=== PATIENT | female | born 1935 | race Caucasian/White ===

== ENCOUNTER 2024-06-11 10:38 | Emergency (ER) | payer MEDICARE, OTHER ==
[2024-06-11 10:51] VITALS: TEMP 98.8
--- NOTE | 2024-06-11 10:59 | ERPHSYRPT ---
- History of Present Illness Time Seen by Provider: 06/11/24 10:59 Source: patient, family Exam Limitations: no limitations Physician History: This is an 88-year-old white female patient of Dr. Tapia who arrives by private vehicle escorted by her significant other with a complaint of shortness of breath for several weeks. She does not see Dr. Tapia until the month of July 2024 and was concerned because her symptoms have worsened in the last 2 days including a productive cough of clear sputum but no fever. Patient denies chest pain. Patient denies abdominal pain. There have been no changes in her medication. Her room air oxygen saturation level is 99% and her vital signs are stable. Timing/Duration: week(s) (Symptoms present for several weeks), worse (Symptoms worse in the last 2 days) Severity of Dyspnea-Max: moderate (Primarily with exertion) Severity of Dyspnea-Current: mild Possible Cause: no prior episodes Modifying Factors: Improves With: activity (Worsens), coughing Associated Symptoms: cough, productive cough (Sputum), No chest pain/discomfort, No fever, No calf pain, No heaviness Allergies/Adverse Reactions: No Known Drug Allergies Allergy (Unverified 06/11/24 10:40) Travel Risk - International Travel Have you traveled outside of the country in past 3 weeks: No - Emerging Infectious Disease Are you exhibiting symptoms associated with any current EIDs: Yes Symptoms: Cough: New Onset, Shortness of Breath - Review of Systems Constitutional: No Symptoms Eyes: No Symptoms Ears, Nose, & Throat: No Symptoms Respiratory: Cough, Dyspnea on Exertion (BISHOP) Cardiac: No Symptoms Abdominal/Gastrointestinal: No Symptoms Genitourinary Symptoms: No Symptoms Musculoskeletal: No Symptoms Skin: No Symptoms Neurological: No Symptoms Psychological: No Symptoms Endocrine: No Symptoms Hematologic/Lymphatic: No Symptoms Immunological/Allergic: No Symptoms All Other Systems: Reviewed and Negative - Past Medical History Pertinent Past Medical History: Yes Cardiac History: Arrhythmia, High Cholesterol Endocrine Medical History: Diabetes Type II Other Medical History: kidney stones - Past Surgical History Past Surgical History: Yes Gastrointestinal: Cholecystectomy Genitourinary: Kidney Surgery Other Surgical History: right kidney removed. kidney stone removal - Nursing Vital Signs Nursing Vital Signs: Initial Vital Signs Pulse Rate 71 06/11/24 10:33 Respiratory Rate 20 06/11/24 10:33 Blood Pressure 167/65 06/11/24 10:33 O2 Sat by Pulse Oximetry 96 06/11/24 10:33 Pain Scale Pain Intensity 0 - Physical Exam General Appearance: no apparent distress, alert, anxiety Eye Exam: PERRL/EOMI, eyes nml inspection Ears, Nose, Throat Exam: hearing grossly normal Neck Exam: normal inspection, non-tender, supple, full range of motion Respiratory Exam: normal breath sounds, lungs clear, airway intact, No chest tenderness, No respiratory distress Cardiovascular/Chest Exam: normal heart sounds, regular rate/rhythm Abdominal/Gastrointestinal Exam: soft, normal bowel sounds, No tenderness Rectal Exam: not done Extremity Exam: non-tender, normal range of motion, normal inspection, no calf tenderness, no pedal edema, pelvis stable Neurologic Exam: alert, oriented x 3, cooperative, finisher wallboard and plasterboard II-XII nml as tested, normal mood/affect, nml cerebellar function, nml station & gait, sensation nml Skin Exam: normal color, warm, dry Lymphatic Exam: No adenopathy SpO2 Interpretation: normal SpO2: 97 O2 Delivery: Room Air - Course Nursing assessment & vital signs reviewed: Yes EKG Interpreted by Me: RATE (75), Sinus Rhythm, NORMAL AXIS, NORMAL INTERVALS, Right Bundle Branch Block, Other (No acute ischemic changes on today's twelve-lead EKG.) Ordered Tests: Active Orders 24 hr Category Date Time Status EKG-ER Only STAT Care 06/11/24 11:41 Active IV Insertion STAT Care 06/11/24 11:41 Active Pulse Oximetry (ED) STAT Care 06/11/24 11:41 Active CHEST 1 VIEW (PORTABLE) Stat Exams 06/11/24 11:42 Completed BLOOD CULTURE Stat Lab 06/11/24 12:04 Received CBC W DIFF Stat Lab 06/11/24 11:41 Results CMP Stat Lab 06/11/24 12:04 Completed D-DIMER QUANTITATIVE Stat Lab 06/11/24 12:04 Completed Lactic Acid Stat Lab 06/11/24 12:04 Completed Lactic Acid Stat Lab 06/11/24 14:32 Completed MAGNESIUM Stat Lab 06/11/24 12:04 Completed MONO SCREEN Stat Lab 06/11/24 12:04 Completed Manual Differential NC Stat Lab 06/11/24 11:41 Results NT PRO BNPII Stat Lab 06/11/24 12:04 Completed Occult Blood-Fecal Screen (Diagnostic) [OB-FECAL SCREEN Lab 06/11/24 Ordered ] Stat Pathologist Review Stat Lab 06/11/24 11:41 Results TROPONIN Q4H Lab 06/11/24 12:04 Completed TROPONIN Q4H Lab 06/11/24 15:48 Completed TROPONIN Q4H Lab 06/11/24 19:45 Ordered UA W/RFX UR CULTURE Stat Lab 06/11/24 14:47 Completed Medication Summary Discontinued Medications Generic Name Dose Route Start Last Admin Trade Name Joe PRN Reason Stop Dose Admin Sodium Chloride 500 mls @ 500 mls/hr 06/11/24 12:44 06/11/24 13:47 Sodium Chloride 0.9% 500 Ml IV 06/11/24 13:43 Infused .Q1H ONE Infusion Sodium Chloride Confirm 06/11/24 12:46 Sodium Chloride 0.9% 500 Ml Administered 06/11/24 12:47 Dose 500 mls @ ud IV .STK-MED ONE Lab/Rad Data: Laboratory Result Diagrams 06/11/24 11:41 06/11/24 12:04 Laboratory Results 06/11/24 06/11/24 06/11/24 Range/Units 15:48 14:47 14:32 WBC (3.98-10.04) x10^3/uL RBC (3.93-5.22) x10^6/uL Hgb (11.2-15.7) g/dL Hct (34.1-44.9) % MCV (79.4-94.8) fL MCH (25.6-32.2) pg MCHC (32.2-35.5) g/dL RDW (11.7-14.4) % Plt Count (182-369) x10^3/uL MPV (9.4-12.3) fL Gran % (34.0-71.1) % Immature Gran % (Auto) (0.001-0.429) % Nucleat RBC Rel Count (0.00-0.2) % Eos # (Auto) (0.04-0.36) x10^3/uL Immature Gran # (Auto) (0.001-0.031) x10^3u/L Absolute Lymphs (auto) (1.18-3.74) x10^3/uL Absolute Monos (auto) (0.24-0.86) x10^3/uL Absolute Nucleated RBC (0.00-0.012) x10^3u/L Lymphocytes % (19.3-51.7) % Monocytes % (4.7-12.5) % Eosinophils % (0.7-5.8) % Basophils % (0.1-1.2) % Absolute Granulocytes (1.56-6.13) x10^3/uL Segmented Neutrophils (34.0-71.1) % Lymphocytes (Manual) (19.3-51.7) % Monocytes (Manual) (4.7-12.5) % Eosinophils (Manual) (0.7-5.8) % Basophils # (0.01-0.08) x10^3/uL Hypochromia Platelet Estimate (NORMAL) RBC Morphology Anisocytosis Smear Path Review D-Dimer (0.0-0.50) mg/L Sodium (135-145) mmol/L Potassium (3.5-5.1) mmol/L Chloride (98-107) mmol/L Carbon Dioxide (22-30) mmol/L Anion Gap (5-15) MEQ/L BUN (7-17) mg/dL Creatinine (0.52-1.04) mg/dL Estimated GFR ML/MIN Glucose (74-106) mg/dL Lactic Acid 2.0 (0.4-2.0) Calcium (8.4-10.2) mg/dL Magnesium (1.6-2.3) mg/dL Total Bilirubin (0.2-1.3) mg/dL AST (14-36) U/L ALT (0-35) U/L Alkaline Phosphatase (38-126) U/L Troponin I < 0.012 (0.000-0.033) ng/mL NT-Pro-B Natriuret Pep (<300) pg/mL Serum Total Protein (6.3-8.2) g/dL Albumin (3.5-5.0) g/dL Urine Color Yellow (Yellow) Urine Appearance Clear (Clear) Urine pH 5.5 (4.6-8.0) Ur Specific [place] 1.010 (1.005-1.030) Urine Protein Trace A (Negative) Urine Glucose (UA) Negative (Negative) mg/dL Urine Ketones Negative (Negative) Urine Blood Negative (Negative) Urine Nitrite Negative (Negative) Urine Bilirubin Negative (Negative) Urine Urobilinogen 0.2 (0.2) mg/dL Ur Leukocyte Esterase Negative (Negative) U Hyaline Cast (Auto) NONE SEEN (0-2) /LPF Urine Microscopic RBC 0-2 (0-5) /HPF Urine Microscopic WBC 0-2 (0-5) /HPF Ur Epithelial Cells None Seen (None Seen) /HPF Urine Bacteria None Seen (None Seen) /HPF Urine Culture Reflexed NO (NO) Monoscreen (NEGATIVE) Influenza Type A Ag (NEGATIVE) Influenza Type B Ag (NEGATIVE) RSV (PCR) (NEGATIVE) SARS-CoV-2 (PCR) (NEGATIVE) 06/11/24 06/11/24 06/11/24 Range/Units 12:04 12:04 12:04 WBC (3.98-10.04) x10^3/uL RBC (3.93-5.22) x10^6/uL Hgb (11.2-15.7) g/dL Hct (34.1-44.9) % MCV (79.4-94.8) fL MCH (25.6-32.2) pg MCHC (32.2-35.5) g/dL RDW (11.7-14.4) % Plt Count (182-369) x10^3/uL MPV (9.4-12.3) fL Gran % (34.0-71.1) % Immature Gran % (Auto) (0.001-0.429) % Nucleat RBC Rel Count (0.00-0.2) % Eos # (Auto) (0.04-0.36) x10^3/uL Immature Gran # (Auto) (0.001-0.031) x10^3u/L Absolute Lymphs (auto) (1.18-3.74) x10^3/uL Absolute Monos (auto) (0.24-0.86) x10^3/uL Absolute Nucleated RBC (0.00-0.012) x10^3u/L Lymphocytes % (19.3-51.7) % Monocytes % (4.7-12.5) % Eosinophils % (0.7-5.8) % Basophils % (0.1-1.2) % Absolute Granulocytes (1.56-6.13) x10^3/uL Segmented Neutrophils (34.0-71.1) % Lymphocytes (Manual) (19.3-51.7) % Monocytes (Manual) (4.7-12.5) % Eosinophils (Manual) (0.7-5.8) % Basophils # (0.01-0.08) x10^3/uL Hypochromia Platelet Estimate (NORMAL) RBC Morphology Anisocytosis Smear Path Review D-Dimer (0.0-0.50) mg/L Sodium (135-145) mmol/L Potassium (3.5-5.1) mmol/L Chloride (98-107) mmol/L Carbon Dioxide (22-30) mmol/L Anion Gap (5-15) MEQ/L BUN (7-17) mg/dL Creatinine (0.52-1.04) mg/dL Estimated GFR ML/MIN Glucose (74-106) mg/dL Lactic Acid (0.4-2.0) Calcium (8.4-10.2) mg/dL Magnesium (1.6-2.3) mg/dL Total Bilirubin (0.2-1.3) mg/dL AST (14-36) U/L ALT (0-35) U/L Alkaline Phosphatase (38-126) U/L Troponin I < 0.012 (0.000-0.033) ng/mL NT-Pro-B Natriuret Pep (<300) pg/mL Serum Total Protein (6.3-8.2) g/dL Albumin (3.5-5.0) g/dL Urine Color (Yellow) Urine Appearance (Clear) Urine pH (4.6-8.0) Ur Specific [place] (1.005-1.030) Urine Protein (Negative) Urine Glucose (UA) (Negative) mg/dL Urine Ketones (Negative) Urine Blood (Negative) Urine Nitrite (Negative) Urine Bilirubin (Negative) Urine Urobilinogen (0.2) mg/dL Ur Leukocyte Esterase (Negative) U Hyaline Cast (Auto) (0-2) /LPF Urine Microscopic RBC (0-5) /HPF Urine Microscopic WBC (0-5) /HPF Ur Epithelial Cells (None Seen) /HPF Urine Bacteria (None Seen) /HPF Urine Culture Reflexed (NO) Monoscreen NEGATIVE (NEGATIVE) Influenza Type A Ag NEGATIVE (NEGATIVE) Influenza Type B Ag NEGATIVE (NEGATIVE) RSV (PCR) NEGATIVE (NEGATIVE) SARS-CoV-2 (PCR) NEGATIVE (NEGATIVE) 06/11/24 06/11/24 06/11/24 Range/Units 12:04 12:04 12:04 WBC (3.98-10.04) x10^3/uL RBC (3.93-5.22) x10^6/uL Hgb (11.2-15.7) g/dL Hct (34.1-44.9) % MCV (79.4-94.8) fL MCH (25.6-32.2) pg MCHC (32.2-35.5) g/dL RDW (11.7-14.4) % Plt Count (182-369) x10^3/uL MPV (9.4-12.3) fL Gran % (34.0-71.1) % Immature Gran % (Auto) (0.001-0.429) % Nucleat RBC Rel Count (0.00-0.2) % Eos # (Auto) (0.04-0.36) x10^3/uL Immature Gran # (Auto) (0.001-0.031) x10^3u/L Absolute Lymphs (auto) (1.18-3.74) x10^3/uL Absolute Monos (auto) (0.24-0.86) x10^3/uL Absolute Nucleated RBC (0.00-0.012) x10^3u/L Lymphocytes % (19.3-51.7) % Monocytes % (4.7-12.5) % Eosinophils % (0.7-5.8) % Basophils % (0.1-1.2) % Absolute Granulocytes (1.56-6.13) x10^3/uL Segmented Neutrophils (34.0-71.1) % Lymphocytes (Manual) (19.3-51.7) % Monocytes (Manual) (4.7-12.5) % Eosinophils (Manual) (0.7-5.8) % Basophils # (0.01-0.08) x10^3/uL Hypochromia Platelet Estimate (NORMAL) RBC Morphology Anisocytosis Smear Path Review D-Dimer 0.58 H (0.0-0.50) mg/L Sodium 140 (135-145) mmol/L Potassium 3.4 L (3.5-5.1) mmol/L Chloride 100 (98-107) mmol/L Carbon Dioxide 26 (22-30) mmol/L Anion Gap 17.1 H (5-15) MEQ/L BUN 18 H (7-17) mg/dL Creatinine 1.54 H (0.52-1.04) mg/dL Estimated GFR 32.7 ML/MIN Glucose 201 H (74-106) mg/dL Lactic Acid 3.2 H (0.4-2.0) Calcium 9.8 (8.4-10.2) mg/dL Magnesium 1.6 (1.6-2.3) mg/dL Total Bilirubin 0.40 (0.2-1.3) mg/dL AST 27 (14-36) U/L ALT 34 (0-35) U/L Alkaline Phosphatase 44 (38-126) U/L Troponin I (0.000-0.033) ng/mL NT-Pro-B Natriuret Pep 883 (<300) pg/mL Serum Total Protein 6.8 (6.3-8.2) g/dL Albumin 4.4 (3.5-5.0) g/dL Urine Color (Yellow) Urine Appearance (Clear) Urine pH (4.6-8.0) Ur Specific [place] (1.005-1.030) Urine Protein (Negative) Urine Glucose (UA) (Negative) mg/dL Urine Ketones (Negative) Urine Blood (Negative) Urine Nitrite (Negative) Urine Bilirubin (Negative) Urine Urobilinogen (0.2) mg/dL Ur Leukocyte Esterase (Negative) U Hyaline Cast (Auto) (0-2) /LPF Urine Microscopic RBC (0-5) /HPF Urine Microscopic WBC (0-5) /HPF Ur Epithelial Cells (None Seen) /HPF Urine Bacteria (None Seen) /HPF Urine Culture Reflexed (NO) Monoscreen (NEGATIVE) Influenza Type A Ag (NEGATIVE) Influenza Type B Ag (NEGATIVE) RSV (PCR) (NEGATIVE) SARS-CoV-2 (PCR) (NEGATIVE) 06/11/24 Range/Units 11:41 WBC 18.4 H (3.98-10.04) x10^3/uL RBC 2.30 L (3.93-5.22) x10^6/uL Hgb 8.6 L (11.2-15.7) g/dL Hct 25.1 L (34.1-44.9) % MCV 109.1 H (79.4-94.8) fL MCH 37.4 H (25.6-32.2) pg MCHC 34.3 (32.2-35.5) g/dL RDW 17.4 H (11.7-14.4) % Plt Count 155 L (182-369) x10^3/uL MPV 10.5 (9.4-12.3) fL Gran % 27.8 L (34.0-71.1) % Immature Gran % (Auto) 1.4 H (0.001-0.429) % Nucleat RBC Rel Count 0.0 (0.00-0.2) % Eos # (Auto) 0.24 (0.04-0.36) x10^3/uL Immature Gran # (Auto) 0.26 H (0.001-0.031) x10^3u/L Absolute Lymphs (auto) 3.21 (1.18-3.74) x10^3/uL Absolute Monos (auto) 9.59 H (0.24-0.86) x10^3/uL Absolute Nucleated RBC 0.00 (0.00-0.012) x10^3u/L Lymphocytes % 17.4 L (19.3-51.7) % Monocytes % 52.0 H (4.7-12.5) % Eosinophils % 1.3 (0.7-5.8) % Basophils % 0.1 (0.1-1.2) % Absolute Granulocytes 5.13 (1.56-6.13) x10^3/uL Segmented Neutrophils 36 (34.0-71.1) % Lymphocytes (Manual) 22 (19.3-51.7) % Monocytes (Manual) 40 H (4.7-12.5) % Eosinophils (Manual) 2 (0.7-5.8) % Basophils # 0.01 (0.01-0.08) x10^3/uL Hypochromia 3+ Platelet Estimate DECREASED (NORMAL) RBC Morphology ABNORMAL Anisocytosis 1+ Smear Path Review Pending D-Dimer (0.0-0.50) mg/L Sodium (135-145) mmol/L Potassium (3.5-5.1) mmol/L Chloride (98-107) mmol/L Carbon Dioxide (22-30) mmol/L Anion Gap (5-15) MEQ/L BUN (7-17) mg/dL Creatinine (0.52-1.04) mg/dL Estimated GFR ML/MIN Glucose (74-106) mg/dL Lactic Acid (0.4-2.0) Calcium (8.4-10.2) mg/dL Magnesium (1.6-2.3) mg/dL Total Bilirubin (0.2-1.3) mg/dL AST (14-36) U/L ALT (0-35) U/L Alkaline Phosphatase (38-126) U/L Troponin I (0.000-0.033) ng/mL NT-Pro-B Natriuret Pep (<300) pg/mL Serum Total Protein (6.3-8.2) g/dL Albumin (3.5-5.0) g/dL Urine Color (Yellow) Urine Appearance (Clear) Urine pH (4.6-8.0) Ur Specific [place] (1.005-1.030) Urine Protein (Negative) Urine Glucose (UA) (Negative) mg/dL Urine Ketones (Negative) Urine Blood (Negative) Urine Nitrite (Negative) Urine Bilirubin (Negative) Urine Urobilinogen (0.2) mg/dL Ur Leukocyte Esterase (Negative) U Hyaline Cast (Auto) (0-2) /LPF Urine Microscopic RBC (0-5) /HPF Urine Microscopic WBC (0-5) /HPF Ur Epithelial Cells (None Seen) /HPF Urine Bacteria (None Seen) /HPF Urine Culture Reflexed (NO) Monoscreen (NEGATIVE) Influenza Type A Ag (NEGATIVE) Influenza Type B Ag (NEGATIVE) RSV (PCR) (NEGATIVE) SARS-CoV-2 (PCR) (NEGATIVE) - Progress Progress: improved, re-examined Air Movement: good Progress Note: 06/11/24 11:58 My medical decision making of the assignment of moderate complexity to this patient's medical issue today is based on review of the patient's past medical history, review the patient's medication list, reviewed patient drug allergy list, history present illness and physical findings on examination. The workup in this patient includes placement of an intravenous line, twelve-lead EKG, BNP, troponin level, D-dimer level, CBC, CMP, chest x-ray, viral swabs, monotest. Differential diagnosis includes but is not limited to pneumonia, viral illness, CHF, myocardial infarction, pulmonary embolus 06/11/24 12:21 The chest x-ray was interpreted by the radiologist and I reviewed the impression. The impression states no acute cardiopulmonary process and chronic bony findings. 06/11/24 13:23 I interpreted the patient's laboratory data results. Based on the laboratory data results, the patient does have a leukocytosis as well as anemia. We will add fecal occult blood study as well as urinalysis. The patient only has 1 kidney. Her GFR is low. Her D-dimer is only slightly elevated. We had a long discussion and she decided against the CT scan of the chest with contrast. I do not think this is unreasonable. My suspicion for her having a pulmonary embolus is low. Based on her decision, we are canceling the CT scan of the chest with contrast. 06/11/24 13:26 The patient's hemoglobin is 8.6 today. I reviewed old outpatient labs performed in this patient on 02/02/2024 the patient hemoglobin was 11.3. Patient is not on any anticoagulation therapy. 06/11/24 16:33 Spoke with the telehospitalist, Dr. Cam. I reviewed the patient's past medical history, presenting complaint and workup results. She and I both agree that this patient needs to be in a facility where there is hematology. In just 3 to 4 months the patient's hemoglobin has dropped from 11.3 down to 8.6 and she is becoming symptomatic with weakness and dyspnea on exertion for even short distances. We will make arrangements to transfer. 06/11/24 17:[address] Fritz, emergency room physician at [facility]. I reviewed the patient past medical history, presenting complaint and workup results. He accepts the patient in transfer. Blood Culture(s) Obtained: Yes Antibiotics given: No Counseled pt/family regarding: lab results, diagnosis, need for follow-up, simran latham Medical Desision Making - Independent Historian Additional History obtained from: Spouse - Diagnostic Testing Diagnostic test were ordered, analyzed, and reviewed by me: Yes Radiological Interpretation: Reviewed by me, Teleradiologist Report - Risk of complications The pt has a high risk of morbidity or mortality based on: Decision regarding hospitilization or escalation of hosp level of care - Departure Departure Disposition: Transfer Clinical Impression: Symptomatic anemia, Leukocytosis, Thrombocytopenia, Dyspnea on minimal exertion Condition: Stable Critical Care Time: No Referrals: ANDREW TAPIA MD [Primary Care Provider] - Follow up/PCP as directed
--- NOTE | 2024-06-11 12:08 | XRAY ---
Indication: Short of breath. Comparison: Thyroid 2018 Portable chest inflated and clear. Heart not enlarged. Bony thorax intact again with osteopenia and mild degenerative changes. Impression: Nonacute chest with chronic bony findings.
[2024-06-11 12:16] LABS: Absolute Neutrophil Ct (ANC) 5.13 x10^3/uL (1.56-6.13); BASOPHIL % 0.1 % (0.1-1.2); Basophil (Absolute #) 0.01 x10^3/uL (0.01-0.08); Eosinophil % 1.3 % (0.7-5.8); Eosinophil (Absolute #) 0.24 x10^3/uL (0.04-0.36); Hematocrit 25.1 % (34.1-44.9); Hemoglobin 8.6 g/dL (11.2-15.7); IMMATURE GRAN # 0.26 x10^3u/L (0.001-0.031); IMMATURE GRAN % 1.4 % (0.001-0.429); Lymphocyte (Absolute #) 3.21 x10^3/uL (1.18-3.74); Lymphocytes % 17.4 % (19.3-51.7); Mean Cell Volume 109.1 fL (79.4-94.8); Mean Corpuscular Hemoglobin 37.4 pg (25.6-32.2); Mean Corpuscular Hgb Concent. 34.3 g/dL (32.2-35.5); Mean Platelet Volume 10.5 fL (9.4-12.3); Monocyte (Absolute #) 9.59 x10^3/uL (0.24-0.86); Neutrophil % 27.8 % (34.0-71.1); Platelet Count 155 x10^3/uL (182-369); Red Cell Distribution Width 17.4 % (11.7-14.4); White Blood Count 18.4 x10^3/uL (3.98-10.04)
[2024-06-11 12:40] LABS: ALBUMIN 4.4 g/dL (3.5-5.0); ANION GAP 17.1 MEQ/L (5-15); BILIRUBIN,TOTAL 0.4 mg/dL (0.2-1.3); Calcium 9.8 mg/dL (8.4-10.2); Creatinine 1 1.54 mg/dL (0.52-1.04); EST GLOMERULAR FILTRATION RATE 32.7 ML/MIN; MAGNESIUM 1.6 mg/dL (1.6-2.3); Potassium 3.4 mmol/L (3.5-5.1); Total Protein 6.8 g/dL (6.3-8.2)
[2024-06-11] MEDS ORDERED: Sodium Chloride 0.9% 500 ML 500 ML IV ONE (12:46)
[2024-06-11] MEDS: Sodium Chloride 0.9% 500 ML 500 ML IV ONE (12:47)
[2024-06-11 12:50] LABS: INFLUENZA A NEGATIVE (NEGATIVE); INFLUENZA B NEGATIVE (NEGATIVE); RESPIRATORY SYNCTIAL VIRUS NEGATIVE (NEGATIVE); SARS-CoV-2 Xpert Express NEGATIVE (NEGATIVE)
[2024-06-11 12:53] LABS: ANISOCYTOSIS 1+; Eosinophil 2 % (0.7-5.8); Hypochromia 3+; Lymphocytes 22 % (19.3-51.7); Monocyte 40 % (4.7-12.5); Neutrophils 36 % (34.0-71.1); Platelet Estimate DECREASED (NORMAL); Total Cells Counted 100
[2024-06-11 15:57] LABS: Bacteria None Seen /HPF (None Seen); Epithelial Cells None Seen /HPF (None Seen); Hyaline Casts NONE SEEN /LPF (0-2); RBC 0-2 /HPF (0-5); WBC 0-2 /HPF (0-5)
[2024-06-11 16:00] LABS: Appearance Clear (Clear); Bilirubin Negative (Negative); Blood Negative (Negative); Glucose, Urine Negative (Negative); Ketones Negative (Negative); Leukocyte Esterase Negative (Negative); Nitrite Negative (Negative); Ph 5.5 (4.6-8.0); Protein,Urine Dip Trace (Negative); Urobilinogen 0.2 mg/dL (0.2)
[2024-06-11 17:57] VITALS: RESP 18
[2024-06-11 19:26] VITALS: BP 160/66; PULSE 74; O2SAT 96
== END 2024-06-11 19:27 | disposition short-term general hospital (02) ==
LOC: ED 10:38
DX: D64.9 Anemia, unspecified (principal); D72.829 Elevated white blood cell count, unspecified; D69.6 Thrombocytopenia, unspecified; R06.09 Other forms of dyspnea; R05.1 Acute cough; E78.5 Hyperlipidemia, unspecified; E11.9 Type 2 diabetes mellitus without complications
CPT/HCPCS: 0241U; 36000; 36415; 71045; 80053; 81001; 83605; 83735; 83880; 84484; 85025; 85379; 86308; 87040; 93005; 94760; 99285

== ENCOUNTER 2024-08-27 07:25 | Emergency (ER) | payer MEDICARE, OTHER ==
[2024-08-27 07:48] VITALS: TEMP 97.6
--- NOTE | 2024-08-27 07:51 | ERPHSYRPT ---
- History of Present Illness Time Seen by Provider: 08/27/24 07:40 Source: patient, family Exam Limitations: no limitations Patient Subjective Stated Complaint: Cough-bloody sputum Triage Nursing Assessment: Patient ambulated back to ED with slow and steady gait using walker. Patient A+O X3. Patient's skin sallow, cool and dry. Patient states she woke up today with cough that is producing bloody sputum. Patient complains of occasional SOB. Patient was dx last month with Leukemia. Patient denies pain or discomfort. Physician History: This is an 89-year-old white female patient who arrives by private vehicle accompanied by her and is a patient of Dr. Tapia with the complaint of hemoptysis that began this morning. Patient has a history of arrhythmia, hyperlipidemia and diabetes. Patient states she was only on aspirin but was told to stop her aspirin when she was diagnosed with leukemia in July 2024. Patient denies chest pain. She is no complaints of shortness of breath. Her room air oxygen saturation level is 98%. Patient has no known drug allergies. Timing/Duration: today Activities at Onset: none Severity of Dyspnea-Max: none Severity of Dyspnea-Current: none Possible Cause: occasional episodes Modifying Factors: Improves With: coughing Associated Symptoms: cough, hemoptysis, No chest pain/discomfort Allergies/Adverse Reactions: No Known Drug Allergies Allergy (Verified 08/27/24 07:37) Home Medications: Cyanocobalamin 1000 Mcg/ml [Cyanocobalamin B-12 1000 MCG/ML] 1 ml IM WEEKLY 08/27/24 [History] Losartan Potassium 50 mg PO DAILY 08/27/24 [History] Magnesium Oxide 400 mg [Mag-Ox 400] 400 mg PO DAILY 08/27/24 [History] Metoprolol Tartrate 50 mg [Lopressor 50 MG] 2 tab PO BID 08/27/24 [History] Mv-Min/FA/Vit K/Lutein/Zeaxant [Preservision Areds 2 Plus Mv] 1 cap PO BID 08/27/24 [History] Omeprazole 20 mg PO DAILY 08/27/24 [History] Potassium Chloride 1 tab PO DAILY 08/27/24 [History] ondansetron HCL [Ondansetron HCl] 8 mg PO Q8HPRN PRN 08/27/24 [History] Hx Tetanus, Diphtheria Vaccination/Date Given: No Hx Influenza Vaccination/Date Given: Yes Hx Pneumococcal Vaccination/Date Given: Yes Immunizations Up to Date: Yes Travel Risk - International Travel Have you traveled outside of the country in past 3 weeks: No - Emerging Infectious Disease Are you exhibiting symptoms associated with any current EIDs: No Symptoms: Cough: New Onset, Shortness of Breath - Review of Systems Constitutional: No Symptoms Eyes: No Symptoms Ears, Nose, & Throat: No Symptoms Respiratory: Cough Cardiac: No Symptoms Abdominal/Gastrointestinal: No Symptoms Genitourinary Symptoms: No Symptoms Musculoskeletal: No Symptoms Skin: No Symptoms Neurological: No Symptoms Psychological: No Symptoms Endocrine: No Symptoms Hematologic/Lymphatic: No Symptoms Immunological/Allergic: No Symptoms All Other Systems: Reviewed and Negative - Past Medical History Pertinent Past Medical History: Yes Neurological History: No Pertinent History ENT History: No Pertinent History Cardiac History: Arrhythmia, High Cholesterol Respiratory History: No Pertinent History Endocrine Medical History: Diabetes Type II GI Medical History: No Pertinent History Other Medical History: kidney stones. Leukemia dx 07/2024 - Past Surgical History Past Surgical History: Yes Gastrointestinal: Cholecystectomy Genitourinary: Kidney Surgery Female Surgical History: Dilation & Curettage, Lumpectomy Other Surgical History: right kidney removed. kidney stone removal. Lumpectomy right breast - Social History Smoking Status: Never smoker Exposure to second hand smoke: No Drug Use: none - Social Determinants of Health Will the patient participate in the screening: Yes Do you worry about a steady place to live?: No Do you have any problems with any of the following?: No known problems In the past 12 months,have you had to go without utilities?: No Transportation Issues: No Has anyone in your support network made you feel unsafe?: No Have you or anyone in your house had to go without enough: No - Nursing Vital Signs Nursing Vital Signs: Initial Vital Signs Temperature 97.6 F 08/27/24 07:38 Pulse Rate 67 08/27/24 07:38 Respiratory Rate 20 08/27/24 07:38 Blood Pressure 177/65 08/27/24 07:38 O2 Sat by Pulse Oximetry 96 08/27/24 07:38 Pain Scale Pain Intensity 0 - Physical Exam General Appearance: no apparent distress, alert, anxiety, thin Eye Exam: PERRL/EOMI, eyes nml inspection Ears, Nose, Throat Exam: hearing grossly normal, normal ENT inspection, normal pharynx Neck Exam: normal inspection, non-tender, supple, full range of motion Respiratory Exam: normal breath sounds, lungs clear, airway intact, No chest tenderness, No respiratory distress Cardiovascular/Chest Exam: normal heart sounds, regular rate/rhythm Abdominal/Gastrointestinal Exam: soft, normal bowel sounds, No tenderness Rectal Exam: not done Extremity Exam: non-tender Neurologic Exam: alert, oriented x 3, cooperative, slotter operator helper II-XII nml as tested, nml cerebellar function, nml station & gait, sensation nml Skin Exam: normal color, warm, dry Lymphatic Exam: No adenopathy SpO2 Interpretation: normal SpO2: 95 O2 Delivery: Room Air - Course Nursing assessment & vital signs reviewed: Yes EKG Interpreted by Me: RATE (67), Sinus Rhythm, NORMAL AXIS, NORMAL INTERVALS, Right Bundle Branch Block, Other (No acute ischemia on today's twelve-lead EKG. QTc is 455) Ordered Tests: Active Orders 24 hr Category Date Time Status Ring Stamper STAT Care 08/27/24 07:52 Active EKG-ER Only STAT Care 08/27/24 07:51 Active IV Insertion STAT Care 08/27/24 07:51 Active Pulse Oximetry (ED) STAT Care 08/27/24 07:51 Active CHEST WITHOUT CONTRAST [CT] Stat Exams 08/27/24 07:51 Completed CBC W DIFF Stat Lab 08/27/24 07:55 Completed CMP Stat Lab 08/27/24 07:55 Completed CULTURE,SPUTUM Stat Lab 08/27/24 07:57 Received MAGNESIUM Stat Lab 08/27/24 07:55 Completed Manual Differential NC Stat Lab 08/27/24 07:55 Completed NT PRO BNPII Stat Lab 08/27/24 07:55 Completed PROTIME WITH INR Stat Lab 08/27/24 07:55 Completed TROPONIN Q4H Lab 08/27/24 07:55 Completed TROPONIN Q4H Lab 08/27/24 12:00 Ordered TROPONIN Q4H Lab 08/27/24 16:00 Ordered Lab/Rad Data: Laboratory Result Diagrams 08/27/24 07:55 08/27/24 07:55 Laboratory Results 08/27/24 08/27/24 08/27/24 Range/Units 07:57 07:55 07:55 WBC (3.98-10.04) x10^3/uL RBC (3.93-5.22) x10^6/uL Hgb (11.2-15.7) g/dL Hct (34.1-44.9) % MCV (79.4-94.8) fL MCH (25.6-32.2) pg MCHC (32.2-35.5) g/dL RDW (11.7-14.4) % Plt Count (182-369) x10^3/uL MPV (9.4-12.3) fL Gran % Immature Gran % (Auto) Nucleat RBC Rel Count Eos # (Auto) Immature Gran # (Auto) Absolute Lymphs (auto) Absolute Monos (auto) Absolute Nucleated RBC Lymphocytes % Monocytes % Eosinophils % Basophils % Absolute Granulocytes Segmented Neutrophils (34.0-71.1) % Lymphocytes (Manual) (19.3-51.7) % Monocytes (Manual) (4.7-12.5) % Eosinophils (Manual) (0.7-5.8) % Basophils # Hypochromia Platelet Estimate (NORMAL) RBC Morphology Anisocytosis PT 11.4 (9.4-12.5) SECONDS INR 1.05 (0.8-3.0) Sodium (135-145) mmol/L Potassium (3.5-5.1) mmol/L Chloride (98-107) mmol/L Carbon Dioxide (22-30) mmol/L Anion Gap (5-15) MEQ/L BUN (7-17) mg/dL Creatinine (0.52-1.04) mg/dL Estimated GFR ML/MIN Glucose (74-106) mg/dL Calcium (8.4-10.2) mg/dL Magnesium (1.6-2.3) mg/dL Total Bilirubin (0.2-1.3) mg/dL AST (14-36) U/L ALT (0-35) U/L Alkaline Phosphatase (38-126) U/L Troponin I < 0.012 (0.000-0.033) ng/mL NT-Pro-B Natriuret Pep 666 (<300) pg/mL Serum Total Protein (6.3-8.2) g/dL Albumin (3.5-5.0) g/dL Influenza Type A Ag NEGATIVE (NEGATIVE) Influenza Type B Ag NEGATIVE (NEGATIVE) RSV (PCR) NEGATIVE (NEGATIVE) SARS-CoV-2 (PCR) NEGATIVE (NEGATIVE) 08/27/24 08/27/24 Range/Units 07:55 07:55 WBC 8.3 (3.98-10.04) x10^3/uL RBC 2.48 L (3.93-5.22) x10^6/uL Hgb 7.9 L (11.2-15.7) g/dL Hct 23.8 L (34.1-44.9) % MCV 96.0 H (79.4-94.8) fL MCH 31.9 (25.6-32.2) pg MCHC 33.2 (32.2-35.5) g/dL RDW 23.4 H (11.7-14.4) % Plt Count 70 L (182-369) x10^3/uL MPV 12.1 (9.4-12.3) fL Gran % Not Reportable Immature Gran % (Auto) Not Reportable Nucleat RBC Rel Count Not Reportable Eos # (Auto) Not Reportable Immature Gran # (Auto) Not Reportable Absolute Lymphs (auto) Not Reportable Absolute Monos (auto) Not Reportable Absolute Nucleated RBC Not Reportable Lymphocytes % Not Reportable Monocytes % Not Reportable Eosinophils % Not Reportable Basophils % Not Reportable Absolute Granulocytes Not Reportable Segmented Neutrophils 41 (34.0-71.1) % Lymphocytes (Manual) 30 (19.3-51.7) % Monocytes (Manual) 27 H (4.7-12.5) % Eosinophils (Manual) 2 (0.7-5.8) % Basophils # Not Reportable Hypochromia 1+ Platelet Estimate NORMAL (NORMAL) RBC Morphology ABNORMAL Anisocytosis 1+ PT (9.4-12.5) SECONDS INR (0.8-3.0) Sodium 136 (135-145) mmol/L Potassium 4.1 (3.5-5.1) mmol/L Chloride 102 (98-107) mmol/L Carbon Dioxide 28 (22-30) mmol/L Anion Gap 10.6 (5-15) MEQ/L BUN 16 (7-17) mg/dL Creatinine 1.57 H (0.52-1.04) mg/dL Estimated GFR 31.7 ML/MIN Glucose 155 H (74-106) mg/dL Calcium 9.5 (8.4-10.2) mg/dL Magnesium 1.7 (1.6-2.3) mg/dL Total Bilirubin 0.50 (0.2-1.3) mg/dL AST 19 (14-36) U/L ALT 19 (0-35) U/L Alkaline Phosphatase 55 (38-126) U/L Troponin I (0.000-0.033) ng/mL NT-Pro-B Natriuret Pep (<300) pg/mL Serum Total Protein 6.6 (6.3-8.2) g/dL Albumin 4.1 (3.5-5.0) g/dL Influenza Type A Ag (NEGATIVE) Influenza Type B Ag (NEGATIVE) RSV (PCR) (NEGATIVE) SARS-CoV-2 (PCR) (NEGATIVE) - Progress Progress: re-examined, unchanged Air Movement: good Progress Note: 08/27/24 07:55 My medical decision making and the assignment of moderate complexity to this patient's medical issue today is based on review of the patient's past medical history, review of the patient's medication list, reviewed patient drug allergy list, history present illness and physical findings on examination. The workup in this patient includes placement of a intravenous line, CBC, CMP, PT/INR, CT scan of the chest without contrast, troponin level, BNP, viral swabs, twelve- lead EKG, magnesium level, sputum culture, blood culture Differential diagnosis includes was not limited to pneumonia, worsening leukemia, metastatic lung cancer, anemia, viral illness 08/27/24 10:04 I interpreted the patient's laboratory data results. Based on the laboratory data results, the patient has anemia and thrombocytopenia. CT scan of the chest without contrast shows a tiny nonspecific left effusion. There are chronic findings as well including arteriosclerotic disease, chronic bony findings, hepatic cyst 08/27/24 10:[address] Jackson, the patient's snowboarding instructor. I reviewed the patient history, chief complaint today and workup results. He stated that the patient was diagnosed with acute myelogenous leukemia and was given her first chemotherapy treatment 10 days ago. He states that this is the likely cause of her drop in hemoglobin and platelet count. He recommends transfusion of a single unit of packed red blood cells and a single unit of single donor platelet transfusions. I then contacted our lab. They stated that it would take several hours for us to obtain 1 unit of single donor platelets from [facility]. We will attempt to transfer the patient to [facility] to see if it is possible for them to provide the patient with a single unit of packed red blood cell and 1 unit of single donor platelets sooner for this patient. Baylee butt, I will contact our hospitalist about placing this patient in observation in our facility for transfusion of both products. This may take several hours. 08/27/24 11:[address] Fritz, the emergency room physician at [facility] in [facility]. I reviewed the patient history, presenting complaint and the conversation I had with the patient's snowboarding instructor. He is agreeable to accept this patient in transfer so that she may receive 1 unit of packed red blood cells and 1 unit of single donor platelets at their facility. Blood Culture(s) Obtained: No Antibiotics given: No Counseled pt/family regarding: lab results, diagnosis, need for follow-up, rad results Medical Desision Making - Independent Historian Additional History obtained from: Spouse - Diagnostic Testing Diagnostic test were ordered, analyzed, and reviewed by me: Yes Radiological Interpretation: Reviewed by me, Teleradiologist Report - Risk of complications The pt has a high risk of morbidity or mortality based on: Decision regarding hospitilization or escalation of hosp level of care - Departure Departure Disposition: Transfer Clinical Impression: Anemia, Thrombocytopenia Condition: Stable Critical Care Time: No Referrals: ANDREW TAPIA MD [Primary Care Provider] - Follow up/PCP as directed
[2024-08-27 08:12] LABS: Hematocrit 23.8 % (34.1-44.9); Hemoglobin 7.9 g/dL (11.2-15.7); Mean Corpuscular Hemoglobin 31.9 pg (25.6-32.2); Mean Corpuscular Hgb Concent. 33.2 g/dL (32.2-35.5); Mean Platelet Volume 12.1 fL (9.4-12.3); Platelet Count 70 x10^3/uL (182-369); Red Blood Count 2.48 x10^6/uL (3.93-5.22); Red Cell Distribution Width 23.4 % (11.7-14.4); White Blood Count 8.3 x10^3/uL (3.98-10.04)
[2024-08-27 08:25] LABS: INR 1.05 (0.8-3.0); PROTIME 11.4 SECONDS (9.4-12.5)
[2024-08-27 08:26] LABS: ALBUMIN 4.1 g/dL (3.5-5.0); ANION GAP 10.6 MEQ/L (5-15); BILIRUBIN,TOTAL 0.5 mg/dL (0.2-1.3); Calcium 9.5 mg/dL (8.4-10.2); Creatinine 1 1.57 mg/dL (0.52-1.04); EST GLOMERULAR FILTRATION RATE 31.7 ML/MIN; MAGNESIUM 1.7 mg/dL (1.6-2.3); Potassium 4.1 mmol/L (3.5-5.1); Total Protein 6.6 g/dL (6.3-8.2)
[2024-08-27 08:39] LABS: NT PRO BNPII 666 pg/mL (<300); TROPONIN < 0.012 ng/mL (0.000-0.033)
[2024-08-27 08:43] LABS: Eosinophil 2 % (0.7-5.8); Lymphocytes 30 % (19.3-51.7); Monocyte 27 % (4.7-12.5); Neutrophils 41 % (34.0-71.1); Platelet Estimate NORMAL (NORMAL); Total Cells Counted 100
[2024-08-27 08:44] LABS: ANISOCYTOSIS 1+; Hypochromia 1+
[2024-08-27 08:49] LABS: INFLUENZA A NEGATIVE (NEGATIVE); INFLUENZA B NEGATIVE (NEGATIVE); RESPIRATORY SYNCTIAL VIRUS NEGATIVE (NEGATIVE); SARS-CoV-2 Xpert Express NEGATIVE (NEGATIVE)
--- NOTE | 2024-08-27 09:53 | XRAY ---
Indication: Hemoptysis. History leukemia. Multiple contiguous axial images obtained through the chest without contrast. Comparison: None Lungs demonstrates tiny left base effusion with minimal compressive atelectasis. Remaining lungs clear. Heart not enlarged with scattered coronary calcifications. Aorta mildly atherosclerotic without aneurysm. Small left hilar calcified nodes. No pathologic mediastinal lymphadenopathy. Bony thorax intact with osteopenia and mild/moderate degenerative changes throughout spine. Limited upper abdomen demonstrates 3.5 x 4.4 cm left lobe hepatic cyst, tiny hepatic/splenic calcified granulomas, tiny benign appearing right adrenal calcifications, and cholecystectomy. Also right nephrectomy with 1.9 cm benign appearing macrocalcification in renal fossa. Impression: 1. Tiny nonspecific left effusion. 2. Chronic findings including arteriosclerotic disease, chronic bony findings, hepatic cyst, benign appearing right adrenal calcifications, right nephrectomy with benign appearing macrocalcification, and old granulomatous disease.
[2024-08-27 11:34] VITALS: BP 151/63; PULSE 70; RESP 17; O2SAT 97
== END 2024-08-27 11:55 | disposition short-term general hospital (02) ==
LOC: ED 07:25
DX: D64.9 Anemia, unspecified (principal); D69.6 Thrombocytopenia, unspecified; R04.2 Hemoptysis; E78.5 Hyperlipidemia, unspecified; E11.9 Type 2 diabetes mellitus without complications; Z79.899 Other long term (current) drug therapy
CPT/HCPCS: 0241U; 36415; 71250; 80053; 83735; 83880; 84484; 85025; 85610; 87070; 93005; 93041; 94760; 99285